=== PATIENT | female | born 1950 | race African-American/Black ===

== ENCOUNTER 2017-02-04 15:33 | Emergency (ER) | payer OTHER ==
[2017-02-04 15:43] VITALS: BP 177/94; PULSE 78; TEMP 97.9; BMI 27.9
--- NOTE | 2017-02-04 15:45 | PDOC ---
Rapid Medical Evaluation Time Seen by Provider: 02/04/17 15:40 Medical Evaluation: Allergies Allergy/AdvReac Type Severity Reaction Status Date / Time No Known Allergies Allergy Verified 01/02/17 16:27 02/04/17 15:40 I have performed a brief in-person evaluation of this patient. The patient presents with a chief complaint of: Chest and upper back pain x several days. H/o HTN, HLD, borderline DM Pertinent physical exam findings: Vitals stable w/ clear chest/lungs I have ordered the following:ekg/cbc/chem/cxr The patient will proceed to the ED for further evaluation. 02/04/17 15:44
[2017-02-04 16:20] LABS: BASOPHIL 0.5 % (0-2.0); EOSINOPHIL 0.8 % (0-4.5); MCH 27.4 pg (25.7-33.7); MCHC 32.8 g/dl (32.0-36.0); MEAN CELL VOLUME 83.7 fl (80-96); MEAN PLT VOLUME 8.8 fl (7.5-11.1); NEUTROPHILS 77.3 % (42.8-82.8); PLATELET COUNT 248 K/MM3 (134-434); RDW 13.7 % (11.6-15.6); WHITE BLOOD COUNT 7.1 K/mm3 (4.0-10.0)
[2017-02-04 16:27] LABS: URINE APPEARANCE CLEAR; URINE BILIRUBIN NEGATIVE (NEGATIVE); URINE BLOOD 2+ (NEGATIVE); URINE COLOR COLORLESS; URINE GLUCOSE (UA) NEGATIVE (NEGATIVE); URINE KETONE NEGATIVE (NEGATIVE); URINE LEUK ESTERASE NEGATIVE (NEGATIVE); URINE NITRITE NEGATIVE (NEGATIVE); URINE PROTEIN NEGATIVE (NEGATIVE); URINE UROBILINOGEN NEGATIVE mg/dL (0.2-1.0)
[2017-02-04 17:00] LABS: URINE BACTERIA RARE /hpf (NONE SEEN); URINE RBC <1 /hpf (0-3); URINE WBC <1 /hpf (3-5)
[2017-02-04 17:00] LABS: ALBUMIN 3.7 g/dl (3.4-5.0); ANION GAP 6 (8-16); BILIRUBIN,TOTAL 0.8 mg/dL (0.2-1.0); CALCIUM 9.7 mg/dL (8.5-10.1); CO2 33 mmol/L (21-32); CREATININE 1.1 mg/dL (0.55-1.02); GLUCOSE,RANDOM 104 mg/dL (74-106); SGOT/AST 16 U/L (15-37); SGPT/ALT 31 U/L (12-78); TOT PROT 7.7 g/dl (6.4-8.2)
[2017-02-04 17:03] LABS: ALK PHOS 88 U/L (45-117); CPK 142 IU/L (26-192); TROPONIN I < 0.02 ng/ml (0.00-0.05)
[2017-02-04 18:53] LABS: URINE LEUK ESTERASE Negative (NEGATIVE)
--- NOTE | 2017-02-05 20:30 | EKG ---
Test Reason : Blood Pressure : / mmHG Vent. Rate : 062 BPM Atrial Rate : 062 BPM P-R Int : 214 ms QRS Dur : 078 ms QT Int : 414 ms P-R-T Axes : 027 033 108 degrees QTc Int : 420 ms SINUS RHYTHM WITH SINUS ARRHYTHMIA WITH 1ST DEGREE A-V BLOCK POSSIBLE CRITERIA FOR SEPTAL INFARCT T-WAVE INVERSION IN LATERAL LEADS ABNORMAL ECG WHEN COMPARED WITH ECG OF 02-JAN-2017 17:25, NC INTERVAL HAS INCREASED Confirmed by ANGELA TRACEY MD ([id number]) on 02/05/2017 8:30:06 PM Referred By: Confirmed By:ANGELA TRACEY MD
== END 2017-02-04 18:37 | disposition left against medical advice (07) ==
LOC: JER 15:33
DX: Z53.21 Procedure and treatment not carried out due to patient leaving prior to being seen by health care provider (principal); I10 Essential (primary) hypertension; E78.5 Hyperlipidemia, unspecified; R73.03 Prediabetes
CPT/HCPCS: 36415; 80053; 81003; 81015; 82550; 84484; 85025; 93005; 93010; 99283-25

== ENCOUNTER 2022-12-22 17:23 | Emergency (ER) | payer OTHER ==
[2022-12-22 17:37] VITALS: BP 176/87; PULSE 76; RESP 18; TEMP 98.2; BMI 26.4
[2022-12-22] MEDS ORDERED: ACETAMINOPHEN 1000 MG/100 ML BAG IVPB ONE (20:30)
[2022-12-22] MEDS ORDERED: ONDANSETRON 4 MG/2 ML VIAL IVPUSH ONE (20:30)
[2022-12-22] MEDS ORDERED: ACETAMINOPHEN INJECTION 100 ML IVPB ONE (20:38)
[2022-12-22] MEDS ORDERED: ONDANSETRON 4 MG/2 ML VIAL ONE (20:38)
== END 2022-12-22 20:55 | disposition left against medical advice (07) ==
LOC: JER 17:23
DX: R10.31 Right lower quadrant pain (principal); M54.50 Low back pain, unspecified; R11.10 Vomiting, unspecified
CPT/HCPCS: 71046-TC-FY; 99283-25

== ENCOUNTER 2024-12-24 12:53 | Emergency (ER) | payer OTHER ==
[2024-12-24 13:22] VITALS: BP 142/82; PULSE 60; RESP 18; TEMP 97.9; BMI 25.2
== END 2024-12-24 14:37 | disposition left against medical advice (07) ==
LOC: JER 12:53
DX: Z53.21 Procedure and treatment not carried out due to patient leaving prior to being seen by health care provider (principal)
CPT/HCPCS: 99281-25